=== PATIENT | female | born 1970 | race Caucasian/White ===

== ENCOUNTER 2016-09-24 06:01 | Day surgery (SDC) | payer OTHER ==
[~2016-09-24 06:01] MED LIST: MONONESSA 28 T1 EACH PO; MULTI VITAMIN1 EAC2 PO; [UNRECOGNIZED DRUG - CODE] PO
== END 2016-09-24 10:40 ==
LOC: SRG 06:01 → SHSB 06:02 → ORE 08:19 → PACU 08:31 → SHSB 09:35
PROC: 097G7ZZ Dilation of Left Eustachian Tube, Via Natural or Artificial Opening (ICD-10-PCS; principal; 2016-09-24)
PROC: 097F7ZZ Dilation of Right Eustachian Tube, Via Natural or Artificial Opening (ICD-10-PCS; 2016-09-24)
DX: H69.83 Other specified disorders of Eustachian tube, bilateral (principal); J45.909 Unspecified asthma, uncomplicated; E73.9 Lactose intolerance, unspecified; J32.9 Chronic sinusitis, unspecified; G43.909 Migraine, unspecified, not intractable, without status migrainosus; Z79.899 Other long term (current) drug therapy; Z88.0 Allergy status to penicillin; Z88.2 Allergy status to sulfonamides; Z98.890 Other specified postprocedural states
CPT/HCPCS: C1726; J0171; J1170